=== PATIENT | female | born 1985 | race Two or more races ===

== ENCOUNTER 2021-06-25 16:50 | Emergency (ER) | payer OTHER ==
[~2021-06-25] VITALS: Ht 165.1 cm; Wt 63.5 kg
== END 2021-06-25 19:53 | disposition home or self-care (01) ==
LOC: ER 16:50 → EDBD 18:26 → ER 18:26
DX: S81.012A Laceration without foreign body, left knee, initial encounter (principal); W18.30XA Fall on same level, unspecified, initial encounter; Y92.89 Other specified places as the place of occurrence of the external cause

== ENCOUNTER → 2021-07-05 | Emergency (ER) | payer OTHER | END | disposition left against medical advice (07) | LOC: ER 12:22 | DX: Z53.21 Procedure and treatment not carried out due to patient leaving prior to being seen by health care provider (principal) ==